=== PATIENT | female | born 1985 | race Two or more races ===

== ENCOUNTER 2018-08-01 09:38 | Inpatient (IN) | payer OTHER ==
[2018-08-01 10:41] LABS: BASO % 0.8 % (0-2.0); EOS % 0.7 % (0-4.5); HEMOGLOBIN 13.2 GM/dL (10.7-15.3); MCH 32.5 pg (25.7-33.7); MCHC 33.7 g/dl (32.0-36.0); MEAN CELL VOLUME 96.2 fl (80-96); MEAN PLT VOLUME 8.4 fl (7.5-11.1); MONO % 5.8 % (3.8-10.2); NEUT % 76.7 % (42.8-82.8); PLATELET COUNT 264 K/MM3 (134-434); RBC 4.06 M/mm3 (3.60-5.2); WHITE BLOOD COUNT 10.1 K/mm3 (4.0-10.0)
[2018-08-01 10:43] VITALS: BMI 38.9
[2018-08-01 10:59] LABS: INR 0.92 (0.83-1.09); PROTHROMBIN TIME (PATIENT) 10.9 SEC (9.7-13.0)
[2018-08-01 11:02] LABS: ACTIVATED PTT 29.7 SECONDS (25.2-36.5)
[2018-08-01 11:03] LABS: CALCIUM 8.8 mg/dL (8.5-10.1); CREATININE 0.4 mg/dL (0.55-1.3)
[2018-08-01] MEDS ORDERED: DEXTROSE 5%-LACTATED RINGERS 1,000 ML IV SCH ×2 (11:15→16:45)
[2018-08-01] MEDS ORDERED: DINOPROSTONE 10 MG VAGINAL SUPPOSITORY VG ONE (11:15)
[2018-08-01] MEDS ORDERED: ELECTROLYTE-148 SOLN 1,000 ML IV SCH (14:00)
[2018-08-01] MEDS ORDERED: FENTANYL/BUPIVACAINE/NS/PF - PCEA - 50 ML DISP.SYRIN EP ONE ×2 (14:04→19:56)
[2018-08-01] MEDS ORDERED: NALOXONE HCL 0.4 MG/ML VIAL IVPUSH PRN (15:32)
[2018-08-01] MEDS ORDERED: OXYTOCIN 20 UNITS in 0.9% NS 20 UNIT/1,000 ML INFUS.BAG IV ONE (15:42)
[2018-08-01] MEDS ORDERED: AMPICILLIN SODIUM 2 GM VIAL ONE (15:43)
[2018-08-01] MEDS ORDERED: FENTANYL/BUPIVACAINE/NS/PF - PCEA - 50 ML DISP.SYRIN EP SCH (15:45)
[2018-08-01] MEDS ORDERED: AMPICILLIN - 2 GM in SODIUM CHLORIDE 100 ML IVPB ONE (16:00)
--- NOTE | 2018-08-01 16:41 | HP ---
Past Medical History - Admission Chief Complaint: Rupture of membrane History of Present Illness: 32 yo @ 38 weeks gestation, EDC 08/14, admitted due to spontaneous rupture of membrane over night. She denies any contractions pain. History Source: Patient Limitations to Obtaining History: No Limitations - Past Medical History ...: 5 ...Para: 1 ...Term: 1 ...Spon : 1 ...Induced : 2 ...LMP: 11/07/17 ... Weeks Gestation by Dates: 38.6 ...EDC by Dates: 08/09/18 ...EDC by Sono: 08/14/18 - Past Surgical History Past Surgical History: Yes: None Hx Myomectomy: No Hx Transabdominal Cerclage: No - Smoking History Smoking history: Never smoked - Alcohol/Substance Use Hx Alcohol Use: No History of Substance Use: reports: None - Social History Usual Living Arrangement: Yes: With Spouse History of Recent Travel: No Home Medications - Allergies Allergies/Adverse Reactions: Allergies Allergy/AdvReac Type Severity Reaction Status Date / Time No Known Allergies Allergy Verified 08/01/18 10:00 - Home Medications Home Medications: Ambulatory Orders Vitamins (Sjr) - 1 tab PO DAILY 08/01/18 Family Disease History - Family Disease History Family History: Unremarkable Review of Systems - Review of Systems Constitutional: reports: No Symptoms Eyes: reports: No Symptoms HENT: reports: No Symptoms Neck: reports: No Symptoms Cardiovascular: reports: No Symptoms Respiratory: reports: No Symptoms Gastrointestinal: reports: No Symptoms Genitourinary: reports: Other (Leakage of fluid) Breasts: reports: No Symptoms Reported Musculoskeletal: reports: No Symptoms Neurological: reports: No Symptoms Endocrine: reports: No Symptoms Hematology/Lymphatic: reports: No Symptoms Psychiatric: reports: No Symptoms Pain Intensity: 2 Physical Exam - Maternity Vital Signs: Vital Signs Temperature 98.1 F 08/01/18 16:00 Pulse Rate 93 H 08/01/18 14:00 Respiratory Rate 20 08/01/18 14:00 Blood Pressure 133/72 08/01/18 14:00 O2 Sat by Pulse Oximetry (%) Constitutional: Yes: Well Nourished Eyes: Yes: Conjunctiva Clear HENT: Yes: Atraumatic Neck: Yes: Supple Cardiovascular: Yes: Regular Rate and Rhythm Lungs: Clear to auscultation Breast(s): Yes: WNL - Abdominal Exam/OB Number of Fetuses: Single Presentation: Vertex - Vaginal Exam/OB Dilatation (cm): 4 Effacement (%): 70 Amniotic Membrane Status: Ruptured Amniotic Fluid: Yes: Clear Presentation: Vertex/Position Station: -2 - Physical Exam Extremities: Yes: WNL Integumentary: Yes: WNL ...Motor Strength: WNL Psychiatric: Yes: Alert, Oriented - Labs Lab Results: CBC, BMP 08/01/18 10:30 08/01/18 10:30 Problem List - Problems (1) Spontaneous rupture of amniotic membranes Code(s): IRP1635 - (2) 38 weeks gestation of Code(s): Z3A.38 - 38 WEEKS GESTATION OF Assessment/Plan Spontaneous rupture of membrane 38 weeks gestation Admit to L&D Cervidil induction Analgesia as needed Anticipate
--- NOTE | 2018-08-01 16:47 | PN ---
Progress Note (short form) - Note Progress Note: Patient seen and re-evaluated. She's lying comfortably in bed. She's status post epidural anesthesia. Cervidil removed. Consider Pitocin augmentation. Problem List - Problems (1) Spontaneous rupture of amniotic membranes Code(s): WOK3264 - (2) 38 weeks gestation of Code(s): Z3A.38 - 38 WEEKS GESTATION OF
[2018-08-01] MEDS ORDERED: AMPICILLIN - 1 GM in SODIUM CHLORIDE 100 ML IVPB SCH (20:00)
[2018-08-01] MEDS ORDERED: OXYTOCIN 30 UNITS in 0.9% NS 30 UNIT/500 ML INFUS.BAG IVPB SCH (20:30)
[2018-08-01] MEDS ORDERED: OXYTOCIN 30 UNITS in 0.9% NS 30 UNIT/500 ML INFUS.BAG IVPB ONE (20:32)
[2018-08-01] MEDS ORDERED: AMPICILLIN SODIUM 1 GM VIAL ONE (21:08)
[2018-08-01] MEDS ORDERED: BENZOCAINE 20% 57 GM BOTTLE TP PRN (22:40)
[2018-08-01] MEDS ORDERED: BISACODYL 10 MG SUPP.RECT RC PRN (22:40)
[2018-08-01] MEDS ORDERED: WITCH HAZEL 50% (TUCKS) 40 PAD/JAR PAD TP PRN (22:40)
[2018-08-01] MEDS ORDERED: BENZOCAINE 28 GM HEMORRHOIDAL OINTMENT TP PRN (22:40)
[2018-08-01] MEDS ORDERED: METHYLERGONOVINE MALEATE 0.2 MG/1 ML AMP IM PRN (22:40)
--- NOTE | 2018-08-01 22:43 | PN ---
Delivery - Delivery Vaginal Delivery: Spontaneous Type of Anesthesia: Epidural Episiotomy/Laceration: 1st degree EBL (cc): 350 Delivery, Single - [place] Feeding Plan Initial Plan: Elected not to breastfeed exclusively throughout hospitalization Remarks - Remarks Remarks: Normal spontaneous vaginal delivery of a live infant boy over first degree laceration. Nose / Oropharynx suctioned @ perineum. Nuchal cord x 1 clamped and cut. Baby handed to nurse. Placenta expelled spontaneously intact. Mother in stable condition.
[2018-08-01] MEDS ORDERED: OXYTOCIN 20 UNITS in 0.9% NS 20 UNIT/1,000 ML INFUS.BAG IV SCH (22:45)
[2018-08-02] MEDS: IBUPROFEN 600 MG TABLET (FP) PO PRN ×3 (06:09→21:23)
[2018-08-02] MEDS: ACETAMINOPHEN 325 MG TABLET (FP) PO PRN ×3 (06:09→21:22)
[2018-08-02 07:19] LABS: BASO % 0.5 % (0-2.0); EOS % 0.5 % (0-4.5); HEMATOCRIT 32.4 % (32.4-45.2); HEMOGLOBIN 11.1 GM/dL (10.7-15.3); MCH 32.8 pg (25.7-33.7); MCHC 34.4 g/dl (32.0-36.0); MEAN CELL VOLUME 95.4 fl (80-96); MEAN PLT VOLUME 8.7 fl (7.5-11.1); MONO % 6.4 % (3.8-10.2); NEUT % 77.6 % (42.8-82.8); PLATELET COUNT 254 K/MM3 (134-434); WHITE BLOOD COUNT 12.5 K/mm3 (4.0-10.0)
--- NOTE | 2018-08-02 07:39 | PN ---
Post Progress Note - Subjective Subjective: 32 yo Para 2 status post normal vaginal delivery, seen and evaluated. Doing well. Post Day: 1 Type of Delivery: Vital Signs: Vital Signs Temperature 98.3 F 08/02/18 06:00 Pulse Rate 86 08/02/18 06:00 Respiratory Rate 20 08/02/18 06:00 Blood Pressure 133/73 08/02/18 06:00 O2 Sat by Pulse Oximetry (%) 100 08/01/18 22:45 Breast Exam: Yes: Soft Uterus: Yes: Fundus Firm Abdomen/GI: Yes: Abdomen soft Lochia: Yes: Rubra Lochia, amount: Moderate Extremities: Yes: Calves non-tender Perineum: Yes: Laceration (Healing) Activity: Other (She's lying in bed) - Labs Labs: CBC WBC 10.1 K/mm3 (4.0-10.0) H 08/01/18 10:30 RBC 4.06 M/mm3 (3.60-5.2) 08/01/18 10:30 Hgb 13.2 GM/dL (10.7-15.3) 08/01/18 10:30 Hct 39.0 % (32.4-45.2) 08/01/18 10:30 MCV 96.2 fl (80-96) H 08/01/18 10:30 MCH 32.5 pg (25.7-33.7) 08/01/18 10:30 MCHC 33.7 g/dl (32.0-36.0) 08/01/18 10:30 RDW 13.0 % (11.6-15.6) 08/01/18 10:30 Plt Count 264 K/MM3 (134-434) 08/01/18 10:30 MPV 8.4 fl (7.5-11.1) 08/01/18 10:30 Absolute Neuts (auto) 7.8 K/mm3 (1.5-8.0) 08/01/18 10:30 Neutrophils % 76.7 % (42.8-82.8) 08/01/18 10:30 Lymphocytes % 16.0 % (8-40) 08/01/18 10:30 Monocytes % 5.8 % (3.8-10.2) 08/01/18 10:30 Eosinophils % 0.7 % (0-4.5) 08/01/18 10:30 Basophils % 0.8 % (0-2.0) 08/01/18 10:30 Nucleated RBC % 0 % (0-0) 08/01/18 10:30 Problem List - Problems (1) Spontaneous rupture of amniotic membranes Code(s): WPK4659 - (2) 38 weeks gestation of Code(s): Z3A.38 - 38 WEEKS GESTATION OF (3) Status post normal vaginal delivery Code(s): PNQ5397 - Assessment/Plan Status post vaginal delivery Stable Continue routine care
[2018-08-02] MEDS: FERROUS SO4 325 MG TABLET (FP) PO SCH ×2 (09:17→21:21)
[2018-08-02] MEDS: PRENATAL VITAMINS W/ FOLIC ACID TABLET (FP) PO SCH (09:17)
[2018-08-02] MEDS ORDERED: FLU VACCINE QUAD 60 MCG/0.5 ML (MDV 18-19) IM ONE (10:00)
[2018-08-02] MEDS ORDERED: DIPHTH,PERTUSS(ACELL),TET 0.5 ML DISP.SYRIN IM ONE (10:00)
[2018-08-02] MEDS ORDERED: SENNOSIDES/DOCUSATE COMBO (SENNA PLUS) TABLET (UD) PO PRN (22:00)
[2018-08-03 07:50] VITALS: BP 123/73; PULSE 84; TEMP 98.6
--- NOTE | 2018-08-03 08:07 | DS ---
Physical Exam-CODING AND REIMBURSEMENT SPECIALIST Vital Signs: Vital Signs Temperature 98.6 F 08/03/18 07:10 Pulse Rate 84 08/03/18 07:10 Respiratory Rate 20 08/03/18 07:10 Blood Pressure 123/73 08/03/18 07:10 O2 Sat by Pulse Oximetry (%) 100 08/01/18 22:45 Constitutional: Yes: Well Nourished Eyes: Yes: Conjunctiva Clear HENT: Yes: Atraumatic Neck: Yes: Supple Cardiovascular: Yes: Regular Rate and Rhythm Respiratory: Yes: Regular Gastrointestinal: Yes: Normal Bowel Sounds ...Rectal Exam: Yes: WNL Renal/: Yes: WNL Pelvis: Yes: WNL External Genitalia: Yes: Normal Vaginal Exam: Yes: Normal Cervix: Yes: Normal Uterus: Yes: Firm ....Post : Yes: Uterus firm Neurological: Yes: Alert, Oriented ...Motor Strength: WNL Psychiatric: Yes: Alert, Oriented Labs: CBC, BMP 08/02/18 06:59 08/01/18 10:30 Delivery - Delivery Vaginal Delivery: Spontaneous Type of Anesthesia: Epidural Episiotomy/Laceration: 1st degree EBL (cc): 350 Delivery, Single - Stages of Labor Date 1st Stage Initiatied: 08/01/18 Time 1st Stage Initiated: 22:30 Date 2nd Stage Initiated: 08/01/18 Time 2nd Stage Initiated: 21:45 Date of Delivery: 08/01/18 Time of Delivery: 22:22 Time Placenta Delivered: 22:30 - Condition of Infant Department Operations Manager/Environmental Control Administrator Present: [place]: Tran Almanza Gender: Male Weight: 8 lb 2 oz Position: Left, OA Total Hours ROM (Hrs/Mins): 23hrs. 30mins. - 1 Minute Total Score: 8 5 Minutes Total Score: 9 - [place] Feeding Plan Initial Plan: Elected not to breastfeed exclusively throughout hospitalization Discharge Summary Reason For Visit: LABOR ADMISSION Current Active Problems 38 weeks gestation of (Acute) Spontaneous rupture of amniotic membranes (Acute) Status post normal vaginal delivery (Acute) Procedures: Principal: Normal spontaneous vaginal delivery Hospital Course: Routine care Condition: Good - Instructions Diet, Activity, Other Instructions: Regular diet No douching, no sexual intercourse x 6 weeks F/U with MD in 6 weeks Disposition: HOME - Home Medications Comprehensive Discharge Medication List: Ambulatory Orders Vitamins (Sjr) - 1 tab PO DAILY 08/01/18
[2018-08-03] MEDS: PRENATAL VITAMINS W/ FOLIC ACID TABLET (FP) PO SCH (09:04)
[2018-08-03] MEDS: FERROUS SO4 325 MG TABLET (FP) PO SCH (09:04)
== END 2018-08-03 12:45 | disposition home or self-care (01) | DRG 807 ==
LOC: JDEL 09:38 → JLDR 10:10 → J3W 08-02 01:29
PROVIDERS: ADMIT Obstetrics & Gynecology; ATTEND Obstetrics & Gynecology
PROC: 10E0XZZ Delivery of Products of Conception, External Approach (ICD-10-PCS; principal; 2018-08-01)
PROC: 0HQ9XZZ Repair Perineum Skin, External Approach (ICD-10-PCS; 2018-08-01)
DX: O69.81X0 Labor and delivery complicated by cord around neck, without compression, not applicable or unspecified (principal); Z37.0 Single live birth; O70.0 First degree perineal laceration during delivery; Z3A.38 38 weeks gestation of pregnancy
CPT/HCPCS: 36415; 59409; 80048; 85025; 85610; 85730; 86593; 86850; 86900; 86901; 90686; 90715; G0008

== ENCOUNTER 2020-10-02 06:35 | Inpatient (IN) | payer OTHER ==
[2020-10-02] MEDS: DEXTROSE 5%-LACTATED RINGERS 1,000 ML IV SCH (06:45)
[2020-10-02] MEDS ORDERED: METHYLERGONOVINE MALEATE 0.2 MG/1 ML AMP IM PRN (07:47)
[2020-10-02] MEDS ORDERED: oxyCODONE HCL 5 MG TABLET PO PRN (07:47)
[2020-10-02] MEDS ORDERED: BISACODYL 10 MG SUPP.RECT RC PRN (07:47)
[2020-10-02] MEDS ORDERED: BENZOCAINE 28 GM HEMORRHOIDAL OINTMENT TP PRN (07:47)
[2020-10-02] MEDS: OXYTOCIN 20 UNITS in 0.9% NS 20 UNIT/1,000 ML INFUS.BAG IV SCH (08:00)
[2020-10-02] MEDS: IBUPROFEN 600 MG TABLET (FP) PO PRN ×2 (08:15→14:03)
[2020-10-02] MEDS ORDERED: IBUPROFEN 600 MG TABLET (FP) PO ONE (08:48)
[2020-10-02] MEDS ORDERED: ACETAMINOPHEN 325 MG TABLET (FP) ONE (08:48)
[2020-10-02 08:49] LABS: BASO % 0.9 % (0-2.0); EOS % 0.2 % (0-4.5); HEMOGLOBIN 12.8 GM/dL (10.7-15.3); LYMPH % 9.2 % (8-40); MCH 32.2 pg (25.7-33.7); MCHC 34.5 g/dl (32.0-36.0); MEAN CELL VOLUME 93.3 fl (80-96); MEAN PLT VOLUME 8.3 fl (7.5-11.1); MONO % 3.4 % (3.8-10.2); NEUT % 86.3 % (42.8-82.8); PLATELET COUNT 274 10^3/uL (134-434); RBC 3.96 M/mm3 (3.60-5.2); RDW 13.3 % (11.6-15.6); WHITE BLOOD COUNT 13.8 K/mm3 (4.0-10.0)
[2020-10-02 09:03] VITALS: BMI 37.7
[2020-10-02] MEDS: FERROUS SO4 325 MG TABLET (FP) PO SCH ×3 (09:10→18:22)
[2020-10-02 09:20] LABS: CALCIUM 8.7 mg/dL (8.5-10.1)
[2020-10-02 09:21] LABS: BLOOD UREA NITROGEN 7.7 mg/dL (7-18)
[2020-10-02 09:25] LABS: CREATININE 0.5 mg/dL (0.55-1.3)
[2020-10-02] MEDS: ACETAMINOPHEN 325 MG TABLET (FP) PO PRN ×2 (09:49→14:04)
[2020-10-02] MEDS: BENZOCAINE 20% 57 GM BOTTLE TP PRN (09:53)
[2020-10-02] MEDS: WITCH HAZEL 50% (TUCKS) 40 PAD/JAR PAD TP PRN (09:53)
[2020-10-02] MEDS: PRENATAL VITAMINS W/ FOLIC ACID TABLET (FP) PO SCH (09:53)
[2020-10-02 10:50] LABS: OPIATES, URI NEGATIVE (NEGATIVE)
[2020-10-02 10:51] LABS: COCAINE, UR NEGATIVE (NEGATIVE); METHADONE, UR NEGATIVE (NEGATIVE); PHENCYCLIDINE,URINE NEGATIVE (NEGATIVE); URINE AMPHETAMINES NEGATIVE (NEGATIVE); URINE BARBITURATES NEGATIVE (NEGATIVE); URINE BENZODIAZEPINES NEGATIVE (NEGATIVE)
[2020-10-02 11:06] LABS: INR 0.93 (0.83-1.09); PROTHROMBIN TIME (PATIENT) 11.5 SEC (9.7-13.0)
[2020-10-02 11:08] LABS: ACTIVATED PTT 27.4 SECONDS (25.2-36.5)
[2020-10-03] MEDS: IBUPROFEN 600 MG TABLET (FP) PO PRN ×4 (04:22→21:27)
[2020-10-03] MEDS: ACETAMINOPHEN 325 MG TABLET (FP) PO PRN ×4 (04:22→21:28)
[2020-10-03 09:01] LABS: BASO % 0.6 % (0-2.0); EOS % 0.6 % (0-4.5); HEMATOCRIT 34.9 % (32.4-45.2); HEMOGLOBIN 12.2 GM/dL (10.7-15.3); LYMPH % 21.9 % (8-40); MCH 32.4 pg (25.7-33.7); MCHC 34.9 g/dl (32.0-36.0); MEAN PLT VOLUME 8.2 fl (7.5-11.1); MONO % 4.1 % (3.8-10.2); NEUT % 72.8 % (42.8-82.8); PLATELET COUNT 270 10^3/uL (134-434); RBC 3.75 M/mm3 (3.60-5.2); RDW 13.2 % (11.6-15.6); WHITE BLOOD COUNT 9.7 K/mm3 (4.0-10.0)
[2020-10-03] MEDS: FERROUS SO4 325 MG TABLET (FP) PO SCH ×3 (09:49→17:35)
[2020-10-03] MEDS: PRENATAL VITAMINS W/ FOLIC ACID TABLET (FP) PO SCH (09:50)
[2020-10-03] MEDS ORDERED: DIPHTH,PERTUSS(ACELL),TET 0.5 ML DISP.SYRIN IM ONE (10:00)
[2020-10-03] MEDS: BENZOCAINE 20% 57 GM BOTTLE TP PRN (10:01)
[2020-10-03] MEDS: WITCH HAZEL 50% (TUCKS) 40 PAD/JAR PAD TP PRN (10:01)
[2020-10-03] MEDS: DEXTROSE 5%-LACTATED RINGERS 1,000 ML IV SCH (19:29)
[2020-10-03] MEDS: OXYTOCIN 20 UNITS in 0.9% NS 20 UNIT/1,000 ML INFUS.BAG IV SCH (19:34)
[2020-10-03] MEDS ORDERED: SENNOSIDES/DOCUSATE COMBO (SENNA PLUS) TABLET (UD) PO PRN (22:00)
[2020-10-04] MEDS: FERROUS SO4 325 MG TABLET (FP) PO SCH ×2 (08:06→12:49)
[2020-10-04 09:12] VITALS: BP 116/77; PULSE 74; TEMP 98.2
[2020-10-04] MEDS: PRENATAL VITAMINS W/ FOLIC ACID TABLET (FP) PO SCH (09:44)
[2020-10-04] MEDS: IBUPROFEN 600 MG TABLET (FP) PO PRN (09:47)
[2020-10-04] MEDS: ACETAMINOPHEN 325 MG TABLET (FP) PO PRN (09:48)
== END 2020-10-04 13:55 | disposition home or self-care (01) | DRG 807 ==
LOC: JLDR 06:35 → J3W 09:30
PROVIDERS: ADMIT Obstetrics & Gynecology; ATTEND Obstetrics & Gynecology
PROC: 10E0XZZ Delivery of Products of Conception, External Approach (ICD-10-PCS; principal; 2020-10-02)
DX: O42.02 Full-term premature rupture of membranes, onset of labor within 24 hours of rupture (principal); Z37.0 Single live birth; O70.0 First degree perineal laceration during delivery; Z3A.38 38 weeks gestation of pregnancy
CPT/HCPCS: 36415; 59409; 80048; 80307; 85025; 85610; 85730; 86780; 86850; 86900; 86901; 90715; C9803; U0003; U0005